=== PATIENT | female | born 1960 | race Caucasian/White ===

== ENCOUNTER 2020-06-25 09:02 | Outpatient (CLI) | payer OTHER | END 2020-06-25 09:20 | disposition home or self-care (01) | LOC: LAB 09:02 | PROVIDERS: ATTEND Orthopaedic Surgery | DX: E21.2 Other hyperparathyroidism (principal); M85.88 Other specified disorders of bone density and structure, other site; E55.9 Vitamin D deficiency, unspecified; M85.89 Other specified disorders of bone density and structure, multiple sites; M81.8 Other osteoporosis without current pathological fracture; E88.89 Other specified metabolic disorders; E56.1 Deficiency of vitamin K ==

== ENCOUNTER → 2020-10-08 10:00 | Outpatient (CLI) | payer OTHER ==
[~2020-10-08 10:00] MED LIST: CELECOXIB200 MG; CITALOPRAM HBR20 MG; HIBICLENS118 ML; IBANDRONATE SO150 MG; IBUPROFEN800 MG; NEO-POLYMYXIN-H10 M1; NEURONTIN300 MG PO; ULTRAM50 MG PO; XARELTO10 M1
== END | disposition home or self-care (01) ==
LOC: LAB 10:00
PROVIDERS: ATTEND Orthopaedic Surgery
DX: D64.9 Anemia, unspecified (principal); D68.8 Other specified coagulation defects; N39.0 Urinary tract infection, site not specified; Z76.89 Persons encountering health services in other specified circumstances; R93.6 Abnormal findings on diagnostic imaging of limbs

== ENCOUNTER 2020-10-19 09:00 | Inpatient (IN) | payer OTHER ==
[~2020-10-19] VITALS: Ht 165.1 cm; Wt 113.4 kg
[2020-10-26] MEDS ORDERED: CITALOPRAM HBR20 MG (10:58)
[2020-10-26] MEDS ORDERED: CELECOXIB200 MG (10:58)
[2020-10-26] MEDS ORDERED: XARELTO10 M1 (10:58)
[2020-10-26] MEDS ORDERED: HIBICLENS118 ML (10:58)
[2020-10-26] MEDS ORDERED: IBANDRONATE SO150 MG (10:58)
[2020-10-26] MEDS ORDERED: NEO-POLYMYXIN-H10 M1 (10:59)
[2020-10-26] MEDS ORDERED: IBUPROFEN800 MG (10:59)
[2020-10-30] MEDS ORDERED: ULTRAM50 MG PO (20:57)
== END 2020-10-29 09:44 | disposition home or self-care (01) | DRG 470 ==
LOC: SURH 10-26 09:00 → O/R 10-26 09:58 → SURG 10-26 09:58 → SURH 10-26 10:00 → SURG 10-26 18:10
PROVIDERS: ADMIT Orthopaedic Surgery; ATTEND Orthopaedic Surgery
PROC: 3E0F7SF Introduction of Other Gas into Respiratory Tract, Via Natural or Artificial Opening (ICD-10-PCS; 2020-10-26)
PROC: 0SRC0J9 Replacement of Right Knee Joint with Synthetic Substitute, Cemented, Open Approach (ICD-10-PCS; principal; 2020-10-26 10:00)
DX: M17.11 Unilateral primary osteoarthritis, right knee (principal); M85.68 Other cyst of bone, other site; Z20.822 Contact with and (suspected) exposure to COVID-19

== ENCOUNTER → 2020-10-30 | Emergency (ER) | payer OTHER ==
[~2020-10-30] VITALS: Ht 165.1 cm; Wt 113.4 kg
== END | disposition left against medical advice (07) ==
LOC: ER 20:47
DX: M25.562 Pain in left knee (principal); R60.0 Localized edema

== ENCOUNTER 2020-10-31 07:19 | Emergency (ER) | payer OTHER ==
[~2020-10-31] VITALS: Ht 165.1 cm; Wt 113.4 kg
[~2020-10-31 07:19] MED LIST changes: -NEURONTIN300 MG PO
[2020-12-03] MEDS ORDERED: NEURONTIN300 MG PO (10:08)
== END 2020-10-31 12:07 | disposition home or self-care (01) ==
LOC: ER 07:19
DX: M25.561 Pain in right knee (principal)

== ENCOUNTER → 2021-07-01 12:09 | Outpatient (CLI) | payer OTHER ==
[~2021-07-01 12:09] MED LIST changes: +NEURONTIN300 MG PO
== END | disposition home or self-care (01) ==
LOC: NUCLEAR 11:45
PROVIDERS: ATTEND Internal Medicine Rheumatology
DX: M81.0 Age-related osteoporosis without current pathological fracture (principal)

== ENCOUNTER 2021-10-26 14:03 | Outpatient (CLI) | payer OTHER | END 2021-10-26 14:04 | disposition home or self-care (01) | LOC: RAD 14:03 | PROVIDERS: ATTEND Internal Medicine Rheumatology | DX: M17.12 Unilateral primary osteoarthritis, left knee (principal) ==

== ENCOUNTER 2022-06-13 14:46 | Outpatient (CLI) | payer OTHER | END 2022-06-13 14:53 | disposition home or self-care (01) | LOC: RAD 14:46 | PROVIDERS: ATTEND Internal Medicine Rheumatology | DX: M25.561 Pain in right knee (principal) ==

== ENCOUNTER 2022-09-19 14:59 | Outpatient (CLI) | payer OTHER | END 2022-09-19 15:16 | disposition home or self-care (01) | LOC: RAD 14:59 | PROVIDERS: ATTEND Internal Medicine Rheumatology | DX: M16.11 Unilateral primary osteoarthritis, right hip (principal); M16.12 Unilateral primary osteoarthritis, left hip ==

== ENCOUNTER → 2022-09-19 | Emergency (ER) | payer OTHER | END | disposition left against medical advice (07) | LOC: ER 16:20 | DX: Z53.21 Procedure and treatment not carried out due to patient leaving prior to being seen by health care provider (principal) ==

== ENCOUNTER 2022-09-22 09:25 | Outpatient (CLI) | payer OTHER ==
[~2022-09-22] VITALS: Ht 165.1 cm; Wt 113.9 kg
== END 2022-09-22 09:29 | disposition home or self-care (01) ==
LOC: LAB 09:25
PROVIDERS: ATTEND Orthopaedic Surgery
DX: D64.9 Anemia, unspecified (principal); E88.89 Other specified metabolic disorders; D68.8 Other specified coagulation defects; N39.0 Urinary tract infection, site not specified; Z22.322 Carrier or suspected carrier of Methicillin resistant Staphylococcus aureus; E13.69 Other specified diabetes mellitus with other specified complication

== ENCOUNTER 2022-09-27 12:30 | Inpatient (IN) | payer OTHER ==
[~2022-09-27] VITALS: Ht 165.1 cm; Wt 546.6 kg
[2022-10-03] MEDS ORDERED: XARELTO10 M1 (08:05)
[2022-10-03] MEDS ORDERED: IBUPROFEN800 MG (08:05)
[2022-10-03] MEDS ORDERED: FLONASE16 GM (08:05)
[2022-10-03] MEDS ORDERED: CITALOPRAM HBR20 MG (08:05)
[2022-10-03] MEDS ORDERED: CORTISPORIN EAR10 M1 (08:05)
[2022-10-03] MEDS ORDERED: PROVENTIL HFA6.7 GM (08:06)
== END 2022-10-04 17:45 | DRG 470 ==
LOC: SURH 09-28 12:30 → O/R 10-02 13:14 → SURG 10-02 18:18
PROVIDERS: ADMIT Orthopaedic Surgery; ATTEND Orthopaedic Surgery
PROC: 0SR90JZ Replacement of Right Hip Joint with Synthetic Substitute, Open Approach (ICD-10-PCS; principal; 2022-10-02 11:45)
DX: M16.11 Unilateral primary osteoarthritis, right hip (principal)

== ENCOUNTER 2022-09-28 15:26 | Outpatient (CLI) | payer OTHER | END 2022-09-28 15:43 | disposition home or self-care (01) | LOC: RAD 15:26 | PROVIDERS: ATTEND Orthopaedic Surgery | DX: M79.651 Pain in right thigh (principal) ==

== ENCOUNTER 2023-08-01 13:21 | Outpatient (CLI) | payer OTHER ==
[~2023-08-01 13:21] MED LIST changes: +CORTISPORIN EAR10 M1; +FLONASE16 GM; +PROVENTIL HFA6.7 GM
== END 2023-08-01 13:24 | disposition home or self-care (01) ==
LOC: NUCLEAR 13:21
PROVIDERS: ATTEND Orthopaedic Surgery
DX: M81.0 Age-related osteoporosis without current pathological fracture (principal)

== ENCOUNTER 2023-11-06 08:10 | Outpatient (CLI) | payer OTHER | END 2023-11-06 08:29 | disposition home or self-care (01) | LOC: SONOGRAMA 08:10 | DX: M54.6 Pain in thoracic spine (principal); R16.0 Hepatomegaly, not elsewhere classified; M54.51 Vertebrogenic low back pain ==

== ENCOUNTER 2024-05-28 14:12 | Outpatient (CLI) | payer OTHER | END 2024-05-28 14:20 | disposition home or self-care (01) | LOC: RAD 14:12 | PROVIDERS: ATTEND Family Medicine | DX: J44.9 Chronic obstructive pulmonary disease, unspecified (principal) ==

== ENCOUNTER 2024-10-21 14:40 | Outpatient (CLI) | payer OTHER | END 2024-10-21 14:42 | disposition home or self-care (01) | LOC: TOM 14:40 | DX: R91.1 Solitary pulmonary nodule (principal) ==

== ENCOUNTER 2025-01-21 13:46 | Outpatient (CLI) | payer OTHER | END 2025-01-21 13:50 | disposition home or self-care (01) | LOC: SONOGRAMA 13:46 | PROVIDERS: ATTEND Internal Medicine Rheumatology | DX: M72.2 Plantar fascial fibromatosis (principal) ==